=== PATIENT | male | born 1995 | race Caucasian/White ===

== ENCOUNTER 2023-06-10 17:49 | Emergency (ER) | payer SELFPAY ==
[~2023-06-10] VITALS: Ht 185.4 cm; Wt 99.8 kg
[2023-06-10 18:50] VITALS: BP 130/75; PULSE 52; RESP 18; TEMP 97.6; O2SAT 99
[2023-06-10] MEDS ORDERED: TOMOMETER 1 DEV DEV MC ONE (19:38)
[2023-06-10] MEDS: TETRACAINE HCL/PF 0.5% OPTH 4 ML BTL OP ONE (19:39)
[2023-06-10] MEDS: FLUORESCEIN OPTH STRIP 1 MG OP ONE (19:39)
[2023-06-10] MEDS ORDERED: CILOS OP (20:09)
== END 2023-06-10 20:21 | disposition home or self-care (01) ==
LOC: MED 17:49
DX: T15.81XA Foreign body in other and multiple parts of external eye, right eye, initial encounter (principal); Z79.899 Other long term (current) drug therapy
CPT/HCPCS: 90471; 90715; 99283

== ENCOUNTER 2023-08-30 08:56 | Emergency (ER) | payer SELFPAY ==
[~2023-08-30] VITALS: Ht 185.4 cm; Wt 99.8 kg
[~2023-08-30 08:56] MED LIST: CILOS OP
[2023-08-30 09:01] VITALS: BP 116/80; PULSE 90; RESP 20; TEMP 97.2
[2023-08-30] MEDS: HYDROcodone/APAP 10/325 MG 1 TAB TAB PO ONE (09:55)
[2023-08-30] MEDS: KETOROLAC 30 MG/ML VIAL IM ONE (09:56)
[2023-08-30] MEDS: MORPHINE SULFATE 4 MG/ML SYR IM ONE (11:17)
[2023-08-30] MEDS ORDERED: IBUP-2213 PO (11:47)
[2023-08-30 12:07] VITALS: BP 111/78; PULSE 78; RESP 18; TEMP 97.2; O2SAT 98
== END 2023-08-30 12:07 | disposition home or self-care (01) ==
LOC: MED 08:56
DX: S82.832A Other fracture of upper and lower end of left fibula, initial encounter for closed fracture (principal); Z79.899 Other long term (current) drug therapy; W23.1XXA Caught, crushed, jammed, or pinched between stationary objects, initial encounter; Y92.89 Other specified places as the place of occurrence of the external cause; Y93.89 Activity, other specified; Y99.8 Other external cause status
CPT/HCPCS: 29515; 73562; 73610; 73630; 96372; 99284; J1885; J2270